=== PATIENT | female | born 1985 | race African-American/Black ===

== ENCOUNTER 2017-09-13 18:29 | Emergency (ER) | payer MEDICAID, OTHER ==
[~2017-09-13] VITALS: Ht 167.6 cm; Wt 118.0 kg
[2017-09-13] MEDS ORDERED: ACETAMINOPHEN 325MG TABLET PO ONE (18:45)
[2017-09-14] MEDS ORDERED: ONDANSETRON 4MG ODT PO ONE (01:00)
[2017-09-14 04:51] VITALS: BP 125/74
== END 2017-09-14 05:01 | disposition home or self-care (01) ==
LOC: ER 18:29
DX: S09.8XXA Other specified injuries of head, initial encounter (principal); S10.93XA Contusion of unspecified part of neck, initial encounter; S50.02XA Contusion of left elbow, initial encounter; Y08.89XA Assault by other specified means, initial encounter; Y93.89 Activity, other specified; Y92.9 Unspecified place or not applicable; Z88.8 Allergy status to other drugs, medicaments and biological substances
CPT/HCPCS: 29105; 70450; 72125; 73030; 73060; 73080; 81025; 99284; Q0162; A4565

== ENCOUNTER 2019-10-30 17:54 | Emergency (ER) | payer MEDICAID ==
[~2019-10-30] VITALS: Ht 167.6 cm; Wt 113.0 kg
[2019-10-30 20:43] LABS: BASOPHILS % 0.3 % (0.0-2.0); EOSINOPHILS % 1.2 % (0.0-5.0); HEMATOCRIT. 37.7 % (36.0-48.0); HEMOGLOBIN. 12.2 g/dL (12.0-16.0); LYMPHOCYTES % 25.3 % (20.0-50.0); MEAN CORPUSCULAR VOLUME 86.4 fL (81.0-99.0); MONOCYTES % 6.8 % (2.0-8.0); NEUTROPHILS % 66.4 % (40.0-76.0); PLATELET 293 x1000/uL (130-400); RED BLOOD CELL COUNT 4.36 mill/uL (4.2-5.4); RED CELL DISTRIBUTION WIDTH 14.3 % (11.6-14.6)
[2019-10-30 20:49] LABS: CHLORIDE 107 mEq/L (98-107)
[2019-10-30 20:54] LABS: INR 1.1; PROTHROMBIN TIME 11.4 sec (9.6-11.0)
[2019-10-30 21:00] LABS: B-HCG QUANTITATIVE < 1 mIU/mL (<3)
[2019-10-30] MEDS ORDERED: KETOROLAC 30MG/ML VIAL IV STA (21:26)
[2019-10-30 23:30] LABS: CLARITY URINE CLEAR (CLEAR); COLOR URINE DARK YELLOW (YELLOW); KETONES URINE NEGATIVE (NEGATIVE); LEUKOCYTE ESTERASE URINE 1+ (NEGATIVE); NITRITE URINE NEGATIVE (NEGATIVE); OCCULT BLOOD URINE 3+ (NEGATIVE); PROTEIN URINE 2+ (NEGATIVE); SPECIFIC GRAVITY URINE 1.024 (1.005-1.030)
[2019-10-31 00:48] VITALS: BP 159/98
== END 2019-10-31 00:51 | disposition home or self-care (01) ==
LOC: ER 17:54
DX: N93.9 Abnormal uterine and vaginal bleeding, unspecified (principal); N39.0 Urinary tract infection, site not specified; N83.201 Unspecified ovarian cyst, right side; J45.909 Unspecified asthma, uncomplicated; F12.10 Cannabis abuse, uncomplicated; Z98.84 Bariatric surgery status; Z98.51 Tubal ligation status; Z88.8 Allergy status to other drugs, medicaments and biological substances; Z91.09 Other allergy status, other than to drugs and biological substances
CPT/HCPCS: 36415; 71045; 76830; 76856; 80053; 81003; 84702; 85025; 85610; 93005; 96374; 99285; J1885

== ENCOUNTER 2020-07-26 17:40 | Emergency (ER) | payer MEDICAID ==
[~2020-07-26] VITALS: Ht 167.6 cm; Wt 109.0 kg
[2020-07-26] MEDS ORDERED: ACETAMINOPHEN 325MG TABLET PO STA (18:09)
[2020-07-26] MEDS ORDERED: SODIUM CHLORIDE 0.9% 1,000 ML IV ONE (18:15)
[2020-07-26] MEDS ORDERED: DEXAMETHASONE 4MG/ML 1ML VIAL IV ONE (18:30)
[2020-07-26] MEDS ORDERED: KETOROLAC 15MG/ML VIAL IV ONE (18:30)
[2020-07-26 19:15] LABS: BASOPHILS % 0.3 % (0.0-2.0); EOSINOPHILS % 1.3 % (0.0-5.0); HEMATOCRIT. 33.1 % (36.0-48.0); LYMPHOCYTES % 15.9 % (20.0-50.0); MEAN CORPUSCULAR HEMOGLOBIN 28.1 pg (28.0-32.0); MEAN CORPUSCULAR VOLUME 84.9 fL (81.0-99.0); MEAN PLATELET VOLUME 7.9 fl (7.4-10.4); NEUTROPHILS % 76.5 % (40.0-76.0); PLATELET 274 x1000/uL (130-400); RED CELL DISTRIBUTION WIDTH 13.7 % (11.6-14.6)
[2020-07-26 19:23] LABS: CHLORIDE 107 mEq/L (98-107)
[2020-07-26 19:25] LABS: PROTHROMBIN TIME 10.9 sec (9.6-11.0)
[2020-07-26] MEDS ORDERED: CLONIDINE 0.1MG TABLET PO PRN (20:45)
[2020-07-26 21:00] VITALS: BP 126/78
== END 2020-07-26 21:45 | disposition home or self-care (01) ==
LOC: ER 17:40 → CANBEDREQ 07-27 01:04
DX: J02.9 Acute pharyngitis, unspecified (principal); H92.03 Otalgia, bilateral; F12.10 Cannabis abuse, uncomplicated; J45.909 Unspecified asthma, uncomplicated; Z88.9 Allergy status to unspecified drugs, medicaments and biological substances; Z98.51 Tubal ligation status
CPT/HCPCS: 36415; 71045; 80053; 83605; 84145; 84484; 85025; 85610; 87040; 87070; 87430; 96374; 96375; 99284; J1100; J1885; J7030; Z7610

== ENCOUNTER 2022-11-26 07:32 | Emergency (ER) | payer MEDICAID ==
[~2022-11-26] VITALS: Ht 162.6 cm; Wt 81.0 kg
[2022-11-26 07:35] VITALS: BP 160/100; PULSE 110; RESP 16; TEMP 98.7; O2SAT 98
[2022-11-26] MEDS ORDERED: ONDANSETRON HCL 4MG/2ML INJ IV STA (07:55)
[2022-11-26] MEDS ORDERED: SODIUM CHLORIDE 0.9% 1,000 ML IV ONE (08:00)
== END 2022-11-26 09:50 | disposition left against medical advice (07) ==
LOC: ER 07:40
DX: R11.2 Nausea with vomiting, unspecified (principal); J45.909 Unspecified asthma, uncomplicated; I10 Essential (primary) hypertension; Z98.51 Tubal ligation status
CPT/HCPCS: 99283; 93005; J7030